=== PATIENT | female | born 1980 | race Caucasian/White ===

== ENCOUNTER 2021-02-05 19:45 | Emergency (ER) | payer BC ==
[2021-02-05 20:03] VITALS: BP 131/77
[2021-02-05] MEDS ORDERED: BACITRACIN ZINC OINT 1 PACKET TOP STA (20:55)
[2021-02-05] MEDS ORDERED: TETANUS/DIPHTHERIA/PERTUSSIS 0.5 ML SYRINGE IM ONE (20:55)
--- NOTE | 2021-02-05 20:56 | ED Physician Documentation ---
History of Present Illness - Stated complaint Stated Complaint: LT FOOT STEPPED ON NAIL - Chief complaint Chief Complaint: Trauma Ext - Additonal information Additional information: 40-year-old female has a puncture wound to the sole of the left foot after accidentally stepping on a nail this afternoon. Last tetanus about 7 years ago. Denies pain. Review of Systems Constitutional: reports: Reviewed and negative Nose: reports: Reviewed and negative Throat: reports: Reviewed and negative Cardiac: reports: Reviewed and negative Respiratory: reports: Reviewed and negative GI: reports: Reviewed and negative : reports: Reviewed and negative Skin: reports: Other (Puncture wound sole left foot) PD PAST MEDICAL HISTORY - Allergies Allergies/Adverse Reactions: Allergies Allergy/AdvReac Type Severity Reaction Status Date / Time No Known Drug Allergies Allergy Verified 02/05/21 20:03 PD ED PE EXPANDED - General General: Alert, No acute distress - Extremities Extremities: Left foot (Puncture wound sole left foot without surrounding eryt stacy or tenderness. No drainage. Rest of the foot exam normal.) Results - Vitals Vitals: Vital Signs - 24 hr 02/05/21 20:00 Temperature 37.1 C Heart Rate 61 Respiratory 16 Rate Blood Pressure 131/77 H O2 Saturation 100 Oxygen O2 Source Room air PD MEDICAL DECISION MAKING - ED course Complexity details: d/w patient ED course: 40-year-old female presents emergency department for evaluation of a puncture wound to the sole of her left foot after stepping on a nail this afternoon. Tetanus was updated today as it is over 7 years old. We deferred against prophylactic antibiotics. Advised patient to use warm compress and antibiotic ointment on the puncture wound. Return for concerns of infection, swelling redness erythema or milky drainage. Impression: Puncture wound left foot Departure - Departure Disposition: 01 Home, Self Care Condition: Stable Record reviewed to determine appropriate education?: Yes Instructions: ED Wound Puncture Foot Comments: Marjorie were seen in the ER today for a puncture wound on the sole of your foot. Most puncture wounds do not require antibiotics. I do recommend that you place antibiotic ointment over the puncture wound. You may place a warm compress over it for 10 minutes 2-3 times a day. If you develop concerns of infection, have fevers, redness pain milky drainage please return to the ER for a second look. Your tetanus was updated today and is good for the next 7 to 10 years.
== END 2021-02-05 21:11 | disposition home or self-care (01) ==
LOC: ED 19:45
DX: S91.332A Puncture wound without foreign body, left foot, initial encounter (principal); W22.8XXA Striking against or struck by other objects, initial encounter
CPT/HCPCS: 90471; 90715; 99282; 99283; A9270